=== PATIENT | male | born 1980 | race Caucasian/White ===

== ENCOUNTER 2017-06-28 08:50 | Emergency (ER) | payer OTHER ==
[~2017-06-28] VITALS: Ht 170.2 cm; Wt 91.5 kg
[2017-06-28 10:50] VITALS: BP 136/81
== END 2017-06-28 11:15 | disposition home or self-care (01) ==
LOC: EMS 08:52
DX: Z48.02 Encounter for removal of sutures (principal)
CPT/HCPCS: 99281

== ENCOUNTER 2017-08-09 14:17 | Emergency (ER) | payer OTHER ==
[~2017-08-09] VITALS: Ht 170.2 cm; Wt 90.9 kg
[2017-08-09] MEDS ORDERED: DIVA125T PO (14:26)
[2017-08-09] MEDS ORDERED: QUET200T PO (14:26)
[2017-08-09] MEDS ORDERED: IBUPROFEN 600 MG TABLET PO ONE (15:00)
[2017-08-09 15:17] VITALS: BP 116/95
== END 2017-08-09 15:36 | disposition home or self-care (01) ==
LOC: EMS 14:19
DX: M79.645 Pain in left finger(s) (principal); F15.10 Other stimulant abuse, uncomplicated
CPT/HCPCS: 99284

== ENCOUNTER 2017-10-17 09:32 | Emergency (ER) | payer OTHER ==
[~2017-10-17] VITALS: Ht 170.2 cm; Wt 79.0 kg
[~2017-10-17 09:32] MED LIST: DIVA125T PO; QUET200T PO
[2017-10-17] MEDS ORDERED: PROZ10 PO (09:41)
[2017-10-17 10:00] LABS: BASOPHILS % (AUTO) 0.5 % (0.0-2.0); EOSINOPHILS % (AUTO) 0.3 % (1.0-6.0); HEMATOCRIT 44.9 % (41-53); HEMOGLOBIN 15.3 g/dL (13.5-17.5); LYMPHOCYTES # (AUTO) 2.8 K/uL (1.0-4.8); LYMPHOCYTES % (AUTO) 32.3 % (22.0-44.0); MEAN CORPUSCULAR HEMOGLOBIN 29.1 pg (26.0-34.0); MEAN CORPUSCULAR VOLUME 85 fL (80-100); MONOCYTES # (AUTO) 0.5 K/uL (0.1-1.0); MONOCYTES % (AUTO) 6.1 % (2.0-9.0); NEUTROPHILS # (AUTO) 5.3 K/uL (1.8-7.7); NEUTROPHILS % (AUTO) 60.8 % (40.0-70.0); PLATELET COUNT (AUTO) 292 K/uL (150-450); RED BLOOD CELL COUNT(AUTO) 5.26 MIL/uL (4.50-5.90); RED CELL DISTRIBUTION WIDTH 13.3 % (11.5-14.5); WHITE BLOOD COUNT (AUTO) 8.7 K/uL (4.5-11.0)
[2017-10-17 10:12] LABS: ANION GAP 11 mmol/L (8-16); CARBON DIOXIDE 27 mmol/L (22-29); CHLORIDE 101 mmol/L (98-107); CREATININE 1.03 mg/dL (0.60-1.30); GLOMERULAR FILTR. RATE CALC > 60 mL/min (>60); POTASSIUM 3.7 mmol/L (3.5-5.1); SODIUM SERUM 139 mmol/L (136-145); UREA NITROGEN, BLOOD 9 mg/dL (7-18)
[2017-10-17 10:18] LABS: ALANINE AMINOTRANSFERASE 32 U/L (12-78); ALBUMIN 4.3 g/dL (3.4-5.0); ASPARTATE AMINOTRANSFERASE 18 U/L (15-37); BILIRUBIN,TOTAL 0.2 mg/dL (0.1-1.0); TOTAL PROTEIN, SERUM 8.5 g/dL (6.4-8.2)
[2017-10-17] MEDS ORDERED: LORazepam 1 MG TABLET PO ONE (10:30)
[2017-10-17 10:45] VITALS: BP 133/84
== END 2017-10-17 12:20 | disposition home or self-care (01) ==
LOC: EMS 09:33
DX: F15.10 Other stimulant abuse, uncomplicated (principal); R07.9 Chest pain, unspecified
CPT/HCPCS: 93005; 99285

== ENCOUNTER 2019-12-14 10:15 | Inpatient (IN) | payer MEDICAID, OTHER ==
[~2019-12-14] VITALS: Ht 172.7 cm; Wt 88.8 kg
[~2019-12-14 10:15] MED LIST changes: -DIVA125T PO; -QUET200T PO; +RISP2 PO
[2019-12-14 11:29] LABS: BASOPHILS % (AUTO) 0.5 % (0.0-2.0); EOSINOPHILS % (AUTO) 1.1 % (1.0-6.0); HEMATOCRIT 43.6 % (41-53); HEMOGLOBIN 14.9 g/dL (13.5-17.5); LYMPHOCYTES # (AUTO) 1.5 K/uL (1.0-4.8); LYMPHOCYTES % (AUTO) 26.2 % (22.0-44.0); MEAN CORPUSCULAR HEMOGLOBIN 29.1 pg (26.0-34.0); MEAN CORPUSCULAR HGB CONC 34.1 G/dL (31.0-37.0); MEAN CORPUSCULAR VOLUME 85 fL (80-100); MONOCYTES # (AUTO) 0.3 K/uL (0.1-1.0); NEUTROPHILS # (AUTO) 3.7 K/uL (1.8-7.7); NEUTROPHILS % (AUTO) 66.2 % (40.0-70.0); PLATELET COUNT (AUTO) 232 K/uL (150-450); RED BLOOD CELL COUNT(AUTO) 5.12 MIL/uL (4.50-5.90); RED CELL DISTRIBUTION WIDTH 13.9 % (11.5-14.5)
[2019-12-14 11:43] LABS: ANION GAP 10 mmol/L (8-16); CALCIUM, TOTAL 9.4 mg/dL (8.8-10.5); CARBON DIOXIDE 27 mmol/L (22-29); CHLORIDE 108 mmol/L (98-107); CREATININE 0.94 mg/dL (0.60-1.30); GLOMERULAR FILTR. RATE CALC > 60 mL/min (>60); GLUCOSE,RANDOM 101 mg/dL (70-110); POTASSIUM 3.9 mmol/L (3.5-5.1); SODIUM SERUM 145 mmol/L (136-145); UREA NITROGEN, BLOOD 10 mg/dL (7-18)
[2019-12-14 11:52] LABS: ALANINE AMINOTRANSFERASE 24 U/L (12-78); ALBUMIN 3.7 g/dL (3.4-5.0); ALKALINE PHOSPHATASE 92 U/L (46-116); ASPARTATE AMINOTRANSFERASE 16 U/L (15-37); BILIRUBIN,TOTAL 0.3 mg/dL (0.1-1.0); TOTAL PROTEIN, SERUM 7.3 g/dL (6.4-8.2)
[2019-12-14] MEDS ORDERED: HALOPERIDOL 5 MG TABLET PO PRN (12:00)
[2019-12-14] MEDS ORDERED: LORazepam 2 MG TABLET PO PRN (12:00)
[2019-12-14] MEDS ORDERED: ZOLPIDEM TARTRATE 10 MG TABLET PO PRN (12:00)
[2019-12-14 12:43] LABS: APPEARANCE,URINE CLEAR (CLEAR); BILIRUBIN,URINE NEGATIVE (NEGATIVE); GLUCOSE, URINE (UA) NEGATIVE (NEGATIVE); KETONES,URINE NEGATIVE (NEGATIVE); LEUKOCYTE ESTERASE ,URINE NEGATIVE (NEGATIVE); NITRATE,URINE NEGATIVE (NEGATIVE); OCCULT BLOOD,URINE NEGATIVE (NEGATIVE); PH,URINE 6.5 (5.0-8.0); PROTEIN,URINE NEGATIVE (NEGATIVE); UROBILINOGEN,URINE 0.2 mg/dL (<=1.0)
[2019-12-14 12:48] LABS: AMPHET/METH SCREEN,URINE NEGATIVE (NEGATIVE); BARBITURATE SCREEN, URINE NEGATIVE (NEGATIVE); BENZODIAZEPINES SCREEN,URINE NEGATIVE (NEGATIVE); CANNABINOID SCREEN,URINE NEGATIVE (NEGATIVE); COCAINE SCREEN,URINE NEGATIVE (NEGATIVE); METHADONE SCREEN, URINE NEGATIVE (NEGATIVE); OPIATE SCREEN,URINE NEGATIVE (NEGATIVE)
[2019-12-14 12:49] LABS: PHENCYCLIDINE SCREEN,URINE NEGATIVE (NEGATIVE)
[2019-12-14 17:15] VITALS: BP 125/83
[2019-12-14] MEDS ORDERED: ALBUTEROL SULFATE HFA 90 MCG/PUFF 8 GM INHALER IH PRN (21:00)
[2019-12-14] MEDS ORDERED: DOCUSATE SODIUM 100 MG CAPSULE PO PRN (21:00)
[2019-12-14] MEDS ORDERED: ONDANSETRON HCL 4 MG TABLET PO PRN (21:00)
[2019-12-14] MEDS ORDERED: PETROLATUM,WHITE 28 GM JELLY TP PRN (21:00)
[2019-12-14] MEDS ORDERED: NICOTINE 14 MG/24 HOUR PATCH TD PRN (21:00)
[2019-12-14] MEDS ORDERED: MAGNESIUM HYDROXIDE SUSPENSION 30 ML UDCUP PO PRN (21:00)
[2019-12-14] MEDS ORDERED: CloNIDine HCL 0.1 MG TABLET PO PRN (21:00)
[2019-12-14] MEDS ORDERED: GuaiFENesin/D-METHORPHAN [SUGAR-FREE] 200-20MG/10 ML SYRUP UDCUP PO PRN (21:00)
[2019-12-14] MEDS ORDERED: IBUPROFEN 400 MG TABLET PO PRN (21:00)
[2019-12-14] MEDS ORDERED: MAG HYDROX/AL HYDROX/SIMETH ES 30 ML SUSPENSION UDCUP PO PRN (21:00)
[2019-12-14] MEDS ORDERED: LOPERAMIDE HCL 2 MG CAPSULE PO PRN (21:00)
[2019-12-14] MEDS ORDERED: ACETAMINOPHEN 325 MG TABLET PO PRN (21:00)
[2019-12-14] MEDS: MIRTAZAPINE 15 MG TABLET PO SCH (22:09)
[2019-12-15 08:11] VITALS: BP 103/59
[2019-12-15] MEDS: ARIPiprazole 5 MG TABLET PO SCH (08:19)
[2019-12-15] MEDS: MIRTAZAPINE 15 MG TABLET PO SCH (20:27)
[2019-12-16] MEDS: ARIPiprazole 5 MG TABLET PO SCH (08:38)
[2019-12-16 13:36] VITALS: BP 115/60
[2019-12-16 16:51] VITALS: BP 144/81
[2019-12-16] MEDS: MIRTAZAPINE 15 MG TABLET PO SCH ×2 (19:40→20:36)
[2019-12-17] MEDS: ARIPiprazole 5 MG TABLET PO SCH (08:34)
[2019-12-17 09:49] VITALS: BP 124/78
[2019-12-17] MEDS ORDERED: ARIP5TAB8 PO (13:01)
[2019-12-17] MEDS ORDERED: MIRT-92 PO (13:02)
== END 2019-12-17 13:30 | disposition home or self-care (01) | DRG 885 ==
LOC: EMS 10:18 → 3EC 15:44
PROVIDERS: ADMIT Psychiatry & Neurology Psychiatry; ATTEND Psychiatry & Neurology Psychiatry
DX: F33.3 Major depressive disorder, recurrent, severe with psychotic symptoms (principal); R45.851 Suicidal ideations; F41.9 Anxiety disorder, unspecified; G44.209 Tension-type headache, unspecified, not intractable; Z91.5 Personal history of self-harm; S83.92XA Sprain of unspecified site of left knee, initial encounter; X58.XXXA Exposure to other specified factors, initial encounter; Y93.89 Activity, other specified; Y92.89 Other specified places as the place of occurrence of the external cause; Y99.8 Other external cause status; F19.10 Other psychoactive substance abuse, uncomplicated
CPT/HCPCS: G0480

== ENCOUNTER 2022-09-29 17:10 | Inpatient (IN) | payer MEDICAID ==
[~2022-09-29] VITALS: Ht 172.7 cm; Wt 90.3 kg
[~2022-09-29 17:10] MED LIST changes: +ARIP5TAB37 PO; +MIRT-89 PO; -RISP2 PO
[2022-09-29] MEDS ORDERED: HALOPERIDOL 5 MG TABLET PO PRN (18:30)
[2022-09-29] MEDS ORDERED: LORazepam 2 MG TABLET PO PRN (18:30)
[2022-09-29 18:37] LABS: GLUCOMETER DEV NAME(LOC) POC.BV
[2022-09-29 19:38] VITALS: BP 126/80
[2022-09-29] MEDS: ZOLPIDEM TARTRATE 10 MG TABLET PO PRN (20:51)
[2022-09-30] MEDS ORDERED: CloNIDine HCL 0.1 MG TABLET PO PRN (05:45)
[2022-09-30] MEDS ORDERED: MAG HYDROX/AL HYDROX/SIMETH ES 30 ML SUSPENSION UDCUP PO PRN (05:45)
[2022-09-30] MEDS ORDERED: OMEPRAZOLE 20 MG CAPSULE PO PRN (05:45)
[2022-09-30] MEDS ORDERED: MAGNESIUM HYDROXIDE SUSPENSION 30 ML UDCUP PO PRN (05:45)
[2022-09-30] MEDS ORDERED: ALBUTEROL SULFATE HFA 90 MCG/PUFF 8 GM INHALER IH PRN (05:45)
[2022-09-30] MEDS ORDERED: ONDANSETRON HCL 4 MG TABLET PO PRN (05:45)
[2022-09-30] MEDS ORDERED: ACETAMINOPHEN 325 MG TABLET PO PRN (05:45)
[2022-09-30] MEDS ORDERED: PETROLATUM,WHITE 28 GM JELLY TP PRN (05:45)
[2022-09-30] MEDS ORDERED: IBUPROFEN 600 MG TABLET PO PRN (05:45)
[2022-09-30] MEDS ORDERED: DOCUSATE SODIUM 100 MG CAPSULE PO PRN (05:45)
[2022-09-30] MEDS ORDERED: BACITRACIN 28 GM OINTMENT TP PRN (05:45)
[2022-09-30] MEDS ORDERED: LOPERAMIDE HCL 2 MG CAPSULE PO PRN (05:45)
[2022-09-30 07:41] LABS: BASOPHILS % (AUTO) 0.9 % (0.0-2.0); EOSINOPHILS % (AUTO) 2.8 % (1.0-6.0); HEMATOCRIT 42.4 % (41-53); HEMOGLOBIN 13.8 g/dL (13.5-17.5); LYMPHOCYTES # (AUTO) 2.1 K/uL (1.0-4.8); LYMPHOCYTES % (AUTO) 37.1 % (22.0-44.0); MEAN CORPUSCULAR HGB CONC 32.7 G/dL (31.0-37.0); MEAN CORPUSCULAR VOLUME 86 fL (80-100); MONOCYTES # (AUTO) 0.4 K/uL (0.1-1.0); MONOCYTES % (AUTO) 6.6 % (2.0-9.0); NEUTROPHILS % (AUTO) 52.6 % (40.0-70.0); PLATELET COUNT (AUTO) 210 K/uL (150-450); RED BLOOD CELL COUNT(AUTO) 4.95 MIL/uL (4.50-5.90); RED CELL DISTRIBUTION WIDTH 13.3 % (11.5-14.5)
[2022-09-30 07:55] LABS: HEMOGLOBIN A1C 5.5 % (3.8-5.6)
[2022-09-30 08:06] LABS: ALANINE AMINOTRANSFERASE 28 U/L (12-78); ALBUMIN 3.4 g/dL (3.4-5.0); ALKALINE PHOSPHATASE 84 U/L (46-116); ANION GAP 5 mmol/L (8-16); ASPARTATE AMINOTRANSFERASE 17 U/L (15-37); BILIRUBIN,TOTAL 0.3 mg/dL (0.1-1.0); CALCIUM, TOTAL 9.4 mg/dL (8.8-10.5); CARBON DIOXIDE 30 mmol/L (22-29); CHLORIDE 106 mmol/L (98-107); CHOL/HDL RATIO 4.6 (4.2-7.3); CHOLESTEROL 160 mg/dL (131-200); CREATININE 1.11 mg/dL (0.60-1.30); FREE T4 (FREE THYROXINE) 0.95 ng/dL (0.76-1.46); GLUCOSE,RANDOM 94 mg/dL (70-110); HDL CHOLESTEROL 35 mg/dL (40-60); LDL CHOL (CALC.) 92 mg/dL (0-130); POTASSIUM 4.2 mmol/L (3.5-5.1); SODIUM SERUM 141 mmol/L (136-145); THYROID STIMULATING HORMONE 0.36 uIU/mL (0.36-3.74); TOTAL PROTEIN, SERUM 6.8 g/dL (6.4-8.2); TRIGLYCERIDES 167 mg/dL (15-150); UREA NITROGEN, BLOOD 14 mg/dL (7-18)
[2022-09-30 08:07] LABS: GLOMERULAR FILTR. RATE CALC > 60 mL/min (>60)
[2022-09-30 08:44] VITALS: BP 101/65
[2022-09-30 20:00] VITALS: BP 102/62
[2022-10-01] MEDS: ARIPiprazole 5 MG TABLET PO SCH (08:04)
[2022-10-01] MEDS: DIVALPROEX SODIUM 250 MG DR TABLET PO SCH ×2 (08:05→20:42)
[2022-10-01 08:11] VITALS: BP 100/62
[2022-10-01 20:00] VITALS: BP 110/70
[2022-10-02 08:00] VITALS: BP 112/74
[2022-10-02] MEDS: DIVALPROEX SODIUM 250 MG DR TABLET PO SCH ×2 (08:27→22:05)
[2022-10-02] MEDS: ARIPiprazole 5 MG TABLET PO SCH (08:27)
[2022-10-02 20:37] VITALS: BP 102/64
[2022-10-03 07:03] LABS: APPEARANCE,URINE CLEAR (CLEAR); BILIRUBIN,URINE NEGATIVE (NEGATIVE); GLUCOSE, URINE (UA) NEGATIVE (NEGATIVE); KETONES,URINE NEGATIVE (NEGATIVE); LEUKOCYTE ESTERASE ,URINE NEGATIVE (NEGATIVE); NITRATE,URINE NEGATIVE (NEGATIVE); OCCULT BLOOD,URINE NEGATIVE (NEGATIVE); PH,URINE 5.5 (5.0-8.0); PROTEIN,URINE NEGATIVE (NEGATIVE); UROBILINOGEN,URINE <=1.0 mg/dL (<=1.0)
[2022-10-03 07:10] LABS: AMPHET/METH SCREEN,URINE NEGATIVE (NEGATIVE); BARBITURATE SCREEN, URINE NEGATIVE (NEGATIVE); BENZODIAZEPINES SCREEN,URINE NEGATIVE (NEGATIVE); CANNABINOID SCREEN,URINE NEGATIVE (NEGATIVE); COCAINE SCREEN,URINE NEGATIVE (NEGATIVE); METHADONE SCREEN, URINE NEGATIVE (NEGATIVE); OPIATE SCREEN,URINE NEGATIVE (NEGATIVE)
[2022-10-03 07:14] LABS: PHENCYCLIDINE SCREEN,URINE NEGATIVE (NEGATIVE)
[2022-10-03 08:37] VITALS: BP 110/84
[2022-10-03] MEDS ORDERED: BENZOCAINE/MENTHOL/ZINC CL 20% 11.9 GM GEL TP PRN (08:45)
[2022-10-03] MEDS: DIVALPROEX SODIUM 250 MG DR TABLET PO SCH ×2 (10:06→20:33)
[2022-10-03] MEDS: ARIPiprazole 5 MG TABLET PO SCH (10:42)
[2022-10-03] MEDS: CHLORHEXIDINE GLUCONATE 0.12% 15 ML UDCUP ORAL RINSE PO SCH (17:00)
[2022-10-04 00:14] VITALS: BP 119/57
[2022-10-04 09:16] LABS: GLUCOMETER DEV NAME(LOC) POC.BV
[2022-10-04 09:22] VITALS: BP 119/73
[2022-10-04] MEDS: ARIPiprazole 5 MG TABLET PO SCH (09:49)
[2022-10-04] MEDS: DIVALPROEX SODIUM 250 MG DR TABLET PO SCH ×2 (09:49→20:08)
[2022-10-04] MEDS: CHLORHEXIDINE GLUCONATE 0.12% 15 ML UDCUP ORAL RINSE PO SCH ×2 (09:50→16:45)
[2022-10-04 20:33] VITALS: BP 101/72
[2022-10-05] MEDS: ARIPiprazole 5 MG TABLET PO SCH (08:27)
[2022-10-05] MEDS: CHLORHEXIDINE GLUCONATE 0.12% 15 ML UDCUP ORAL RINSE PO SCH ×2 (08:27→16:13)
[2022-10-05] MEDS: DIVALPROEX SODIUM 250 MG DR TABLET PO SCH ×2 (08:27→20:01)
[2022-10-05 09:07] VITALS: BP 141/87
[2022-10-05 21:01] VITALS: BP 116/73
[2022-10-06 08:21] VITALS: BP 110/63
[2022-10-06] MEDS: DIVALPROEX SODIUM 250 MG DR TABLET PO SCH ×2 (09:25→20:12)
[2022-10-06] MEDS: ARIPiprazole 5 MG TABLET PO SCH (09:25)
[2022-10-06] MEDS: CHLORHEXIDINE GLUCONATE 0.12% 15 ML UDCUP ORAL RINSE PO SCH ×2 (09:25→17:20)
[2022-10-06 20:30] VITALS: BP 100/65
[2022-10-07 08:38] VITALS: BP 132/75
[2022-10-07] MEDS: DIVALPROEX SODIUM 250 MG DR TABLET PO SCH ×2 (08:52→20:32)
[2022-10-07] MEDS: ARIPiprazole 5 MG TABLET PO SCH (08:52)
[2022-10-07] MEDS: CHLORHEXIDINE GLUCONATE 0.12% 15 ML UDCUP ORAL RINSE PO SCH ×2 (08:53→16:47)
[2022-10-07 21:43] VITALS: BP 89/49
[2022-10-08 08:40] VITALS: BP 123/79
[2022-10-08] MEDS: ARIPiprazole 5 MG TABLET PO SCH (08:49)
[2022-10-08] MEDS: CHLORHEXIDINE GLUCONATE 0.12% 15 ML UDCUP ORAL RINSE PO SCH ×2 (08:49→17:18)
[2022-10-08] MEDS: DIVALPROEX SODIUM 250 MG DR TABLET PO SCH ×2 (08:49→20:18)
[2022-10-08 22:15] VITALS: BP 107/60
[2022-10-09 08:33] VITALS: BP 106/68
[2022-10-09] MEDS: DIVALPROEX SODIUM 250 MG DR TABLET PO SCH ×2 (09:16→20:43)
[2022-10-09] MEDS: ARIPiprazole 5 MG TABLET PO SCH (09:16)
[2022-10-09] MEDS: CHLORHEXIDINE GLUCONATE 0.12% 15 ML UDCUP ORAL RINSE PO SCH ×2 (09:16→16:26)
[2022-10-09] MEDS: BENZOCAINE/MENTHOL LOZENGE PO PRN ×2 (10:39→16:45)
[2022-10-09 20:33] VITALS: BP 110/70
[2022-10-10] MEDS: ARIPiprazole 5 MG TABLET PO SCH (08:16)
[2022-10-10] MEDS: DIVALPROEX SODIUM 250 MG DR TABLET PO SCH ×2 (08:17→20:17)
[2022-10-10] MEDS: GuaiFENesin [SUGAR-FREE] 200 MG/10 ML SOLUTION UDCUP PO PRN ×3 (08:17→16:42)
[2022-10-10 08:38] VITALS: BP 127/88
[2022-10-10] MEDS: CHLORHEXIDINE GLUCONATE 0.12% 15 ML UDCUP ORAL RINSE PO SCH ×2 (08:55→17:53)
[2022-10-10 20:17] VITALS: BP 108/72
[2022-10-11 01:26] LABS: GLUCOMETER DEV NAME(LOC) POC.BV
[2022-10-11 01:45] VITALS: BP 111/63
[2022-10-11] MEDS: ZOLPIDEM TARTRATE 10 MG TABLET PO PRN (01:54)
[2022-10-11] MEDS: GuaiFENesin [SUGAR-FREE] 200 MG/10 ML SOLUTION UDCUP PO PRN ×2 (02:09→17:45)
[2022-10-11] MEDS: DIVALPROEX SODIUM 250 MG DR TABLET PO SCH ×2 (09:00→20:34)
[2022-10-11] MEDS: ARIPiprazole 5 MG TABLET PO SCH (09:00)
[2022-10-11 09:12] VITALS: BP 124/71
[2022-10-11] MEDS: CHLORHEXIDINE GLUCONATE 0.12% 15 ML UDCUP ORAL RINSE PO SCH ×2 (09:34→16:19)
[2022-10-11 21:34] VITALS: BP 112/69
[2022-10-12 08:40] VITALS: BP 109/69
[2022-10-12] MEDS: ARIPiprazole 5 MG TABLET PO SCH ×2 (09:00→09:04)
[2022-10-12] MEDS: DIVALPROEX SODIUM 250 MG DR TABLET PO SCH ×3 (09:00→20:35)
[2022-10-12] MEDS: CHLORHEXIDINE GLUCONATE 0.12% 15 ML UDCUP ORAL RINSE PO SCH ×2 (09:05→16:38)
[2022-10-12] MEDS: GuaiFENesin [SUGAR-FREE] 200 MG/10 ML SOLUTION UDCUP PO PRN (11:56)
[2022-10-12 20:56] VITALS: BP 102/67
[2022-10-13] MEDS: GuaiFENesin [SUGAR-FREE] 200 MG/10 ML SOLUTION UDCUP PO PRN (04:47)
[2022-10-13 08:57] VITALS: BP 107/70
[2022-10-13] MEDS: DIVALPROEX SODIUM 250 MG DR TABLET PO SCH ×2 (09:00→20:33)
[2022-10-13] MEDS: ARIPiprazole 5 MG TABLET PO SCH (09:00)
[2022-10-13] MEDS: CHLORHEXIDINE GLUCONATE 0.12% 15 ML UDCUP ORAL RINSE PO SCH ×2 (09:03→16:35)
[2022-10-13 20:42] VITALS: BP 116/72
[2022-10-14] MEDS ORDERED: DIVA-111 PO ×2 (07:43→11:49)
[2022-10-14 08:24] VITALS: BP 109/66
[2022-10-14] MEDS: ARIPiprazole 5 MG TABLET PO SCH (09:00)
[2022-10-14] MEDS: DIVALPROEX SODIUM 250 MG DR TABLET PO SCH (09:00)
[2022-10-14] MEDS: CHLORHEXIDINE GLUCONATE 0.12% 15 ML UDCUP ORAL RINSE PO SCH (09:15)
[2022-10-14] MEDS ORDERED: ARIP5TAB37 PO (11:49)
== END 2022-10-14 12:25 | disposition home or self-care (01) | DRG 750 ==
LOC: B3A 18:48 → B2S 10-02 18:34
PROVIDERS: ADMIT Psychiatry & Neurology Psychiatry; ATTEND Psychiatry & Neurology Psychiatry
DX: F25.9 Schizoaffective disorder, unspecified (principal); F32.A Depression, unspecified; Z20.822 Contact with and (suspected) exposure to COVID-19; F41.9 Anxiety disorder, unspecified; G47.00 Insomnia, unspecified; K59.00 Constipation, unspecified; Z82.49 Family history of ischemic heart disease and other diseases of the circulatory system; Z83.3 Family history of diabetes mellitus; Z28.21 Immunization not carried out because of patient refusal
CPT/HCPCS: 80053; 80061; 80307; 81003; 83036; 84436; 84439; 84443; 85025; 86592; G0480

== ENCOUNTER 2022-12-02 19:42 | Emergency (ER) | payer MEDICAID, OTHER ==
[~2022-12-02] VITALS: Ht 172.7 cm; Wt 90.0 kg
[~2022-12-02 19:42] MED LIST changes: +DIVA-111 PO; -MIRT-89 PO
[2022-12-02] MEDS ORDERED: LIDOCAINE/PF 1% 2 ML VIAL IM ONE (22:30)
[2022-12-02] MEDS ORDERED: SULFAMETHOX/TRIMETH DS 800-160 MG/TABLET PO ONE (22:30)
[2022-12-02] MEDS ORDERED: CefTRIAXone SODIUM 1 GM/VIAL IM ONE (22:30)
[2022-12-02 22:55] LABS: BASOPHILS % (AUTO) 0.7 % (0.0-2.0); EOSINOPHILS % (AUTO) 3.5 % (1.0-6.0); HEMATOCRIT 41.6 % (41-53); HEMOGLOBIN 13.5 g/dL (13.5-17.5); LYMPHOCYTES # (AUTO) 2.7 K/uL (1.0-4.8); LYMPHOCYTES % (AUTO) 24.2 % (22.0-44.0); MEAN CORPUSCULAR HEMOGLOBIN 28.1 pg (26.0-34.0); MEAN CORPUSCULAR HGB CONC 32.6 G/dL (31.0-37.0); MEAN CORPUSCULAR VOLUME 86 fL (80-100); MONOCYTES # (AUTO) 0.8 K/uL (0.1-1.0); MONOCYTES % (AUTO) 6.9 % (2.0-9.0); NEUTROPHILS # (AUTO) 7.2 K/uL (1.8-7.7); NEUTROPHILS % (AUTO) 64.7 % (40.0-70.0); PLATELET COUNT (AUTO) 255 K/uL (150-450); RED BLOOD CELL COUNT(AUTO) 4.82 MIL/uL (4.50-5.90); RED CELL DISTRIBUTION WIDTH 14.5 % (11.5-14.5)
[2022-12-02 23:00] LABS: ANION GAP 7 mmol/L (8-16); CARBON DIOXIDE 30 mmol/L (22-29); CHLORIDE 105 mmol/L (98-107); CREATININE 1.15 mg/dL (0.60-1.30); GLOMERULAR FILTR. RATE CALC > 60 mL/min (>60); GLUCOSE,RANDOM 104 mg/dL (70-110); POTASSIUM 3.8 mmol/L (3.5-5.1); SODIUM SERUM 142 mmol/L (136-145); UREA NITROGEN, BLOOD 16 mg/dL (7-18)
[2022-12-02 23:05] LABS: ALANINE AMINOTRANSFERASE 33 U/L (12-78); ALBUMIN 3.7 g/dL (3.4-5.0); ALKALINE PHOSPHATASE 137 U/L (46-116); ASPARTATE AMINOTRANSFERASE 19 U/L (15-37); BILIRUBIN,TOTAL 0.2 mg/dL (0.1-1.0); TOTAL PROTEIN, SERUM 7.4 g/dL (6.4-8.2)
[2022-12-03] MEDS ORDERED: SULF-261 PO (00:41)
[2022-12-03] MEDS ORDERED: CEPH-558 PO (00:41)
[2022-12-03 00:45] VITALS: BP 129/81
== END 2022-12-03 01:11 | disposition home or self-care (01) ==
LOC: EMS 19:44
DX: L03.032 Cellulitis of left toe (principal); L03.312 Cellulitis of back [any part except buttock and flank]; F31.9 Bipolar disorder, unspecified; Z91.018 Allergy to other foods
CPT/HCPCS: 99283; 80053; 85025; 36415; 96372; J0696; J3490